=== PATIENT | female | born 1980 | race Caucasian/White ===

== ENCOUNTER 2021-05-20 16:22 | Emergency (ER) | payer MEDICARE, OTHER ==
[~2021-05-20] VITALS: Ht 165.1 cm; Wt 109.5 kg
[~2021-05-20 16:22] MED LIST: LATUDA20 MG PO
[2021-05-20] MEDS ORDERED: NAPROXEN500 MG PO (17:48)
[2021-05-20] MEDS ORDERED: SULFAMETHOXAZO1 EAC1 PO (17:48)
[2021-05-20] MEDS ORDERED: LEVOTHYROXINE50 MCG PO (17:48)
[2021-05-20] MEDS ORDERED: VALACYCLOVIR500 MG PO (17:49)
[2021-05-20] MEDS ORDERED: MONTELUKAST SOD10 MG PO (17:49)
[2021-05-20] MEDS ORDERED: HYDROCODON-ACE1 EA11 PO (19:49)
[2021-05-20] MEDS ORDERED: CEPHALEXIN500 M1 PO (19:49)
== END 2021-05-20 20:12 | disposition home or self-care (01) ==
LOC: ED 16:22
DX: N39.0 Urinary tract infection, site not specified (principal); J45.909 Unspecified asthma, uncomplicated; Z88.8 Allergy status to other drugs, medicaments and biological substances; Z91.048 Other nonmedicinal substance allergy status; Z79.899 Other long term (current) drug therapy
CPT/HCPCS: 81001; 84703; 87088; 99283; A9270

== ENCOUNTER 2021-11-05 20:05 | Emergency (ER) | payer MEDICARE, OTHER ==
[~2021-11-05] VITALS: Ht 165.1 cm; Wt 112.8 kg
[~2021-11-05 20:05] MED LIST changes: +CEPHALEXIN500 M1 PO; +HYDROCODON-ACE1 EA11 PO; +LEVOTHYROXINE50 MCG PO; +MONTELUKAST SOD10 MG PO; +NAPROXEN500 MG PO; +SULFAMETHOXAZO1 EAC1 PO; +VALACYCLOVIR500 MG PO
[2021-11-05] MEDS ORDERED: HYDROCODON-ACE1 EA10 PO (22:41)
[2021-11-05] MEDS ORDERED: DOXYCYCLINE HY100 MG PO (22:41)
== END 2021-11-05 23:07 | disposition home or self-care (01) ==
LOC: ED 20:05
DX: L02.211 Cutaneous abscess of abdominal wall (principal); B37.2 Candidiasis of skin and nail; J45.909 Unspecified asthma, uncomplicated; Z88.8 Allergy status to other drugs, medicaments and biological substances; Z79.899 Other long term (current) drug therapy; Z91.09 Other allergy status, other than to drugs and biological substances
CPT/HCPCS: 10060; 87070; 87186; 87205; 99282-25; A9270

== ENCOUNTER 2021-11-07 07:48 | Emergency (ER) | payer MEDICARE, OTHER ==
[~2021-11-07] VITALS: Ht 165.1 cm; Wt 112.8 kg
[~2021-11-07 07:48] MED LIST changes: +DOXYCYCLINE HY100 MG PO; +HYDROCODON-ACE1 EA10 PO
--- OUTSIDE RECORDS SUMMARY | 2021-11-07 07:52 | XMS ---
PreManage Notification: [employer] Security Counter Tacker Events No recent Security Events currently on file CRITERIA MET - [facility] - 2 Visits in 30 Days CARE PROVIDERS LYNDON CARVER Physician Return Agent Current PHONE: [phone] Renita has no Care Guidelines for this patient. William VISIT COUNT (12 MO.) 3 [facility] TOTAL 3 NOTE: Visits indicate total known visits. ED/UCC VISIT TRACKING (12 MO.) 11/07/2021 07:50 [facility] TYPE: Emergency COMPLAINT: - ABDOMINAL PAIN 11/05/2021 20:06 [facility] TYPE: Emergency COMPLAINT: - ABD PAIN 05/20/2021 16:23 [facility] TYPE: Emergency COMPLAINT: - BLOOD CLOTS IN URINE, LOWER L ABD PAIN DIAGNOSES: - Other nonmedicinal substance allergy status - Urinary tract infection, site not specified - Allergy status to other drugs, medicaments and biological substances - Other jail (current) drug therapy - Unspecified asthma, uncomplicated - Hematuria, unspecified INPATIENT VISIT TRACKING (12 MO.) No inpatient visits to display in this time frame [email or web address]
[2021-11-07] MEDS ORDERED: NYAMYC15 GM TOP (08:25)
== END 2021-11-07 08:45 | disposition home or self-care (01) ==
LOC: ED 07:48
DX: B37.2 Candidiasis of skin and nail (principal); Z48.817 Encounter for surgical aftercare following surgery on the skin and subcutaneous tissue; J45.909 Unspecified asthma, uncomplicated; Z88.8 Allergy status to other drugs, medicaments and biological substances; Z91.09 Other allergy status, other than to drugs and biological substances; Z79.899 Other long term (current) drug therapy
CPT/HCPCS: 99282